=== PATIENT | male | born 1990 | race Caucasian/White ===

== ENCOUNTER 2021-12-10 15:08 | Emergency (ER) | payer OTHER, SELFPAY ==
--- NOTE | ~2021-12-10 | XR_ITS ---
EXAMINATION: XR chest 2V Exam Date/Time: 12/10/2021 15:45 CDT HISTORY: cough wheezing smoker Comparison: 09/17/2011. RESULT: Lines, tubes, and devices: None. Lungs and pleura: Clear. Right anterior lung atelectasis/scarring. Cardiomediastinal silhouette: Stable. Other: No acute osseous or upper abdominal finding. IMPRESSION: No acute cardiopulmonary process. Reviewed, dictated and finalized at location K.
[2021-12-10 15:22] VITALS: BP 131/92; PULSE 99; RESP 16; TEMP 36.5; O2SAT 97
--- NOTE | 2021-12-10 15:37 | ED.URI ---
HPI - URI/Sore Throat General Chief Complaint: Upper Respiratory Infection Stated Complaint: cough/vomiting Time Seen by Provider: 12/10/21 15:37 Source: patient and RN notes reviewed Mode of arrival: ambulatory Limitations: no limitations History of Present Illness HPI Narrative: 31-year-old male presents to the [facility] with complaints of cough and shortness of breath for 6 days. Patient is currently a smoker. Patient reports that at times he coughs so hard he vomits. Denies any abdominal pain. No vomiting otherwise. No chest pain. Reports an occasional sore throat since he has been coughing. Related Data Allergies Allergy/AdvReac Type Severity Reaction Status Date / Time No Known Allergies Allergy Verified 12/10/21 16:11 Review of Systems Review of Systems: All systems reviewed & are unremarkable except as noted in HPI and below Constitutional: Constitutional: Reports no additional constitutional complaints, Denies chills and Denies fever(s) Eyes: Eyes: Reports no additional eye complaints ENT: Reports system reviewed and no additional complaints, except as documented Cardiovascular: Cardiovascular: Reports no additional cardiovascular complaints Respiratory: Respiratory: Reports as per HPI, Reports cough, Reports dyspnea and Reports wheezing Gastrointestinal: Gastrointestinal: Reports no additional gastrointestinal complaints Musculoskeletal: Musculoskeletal: Reports no additional musculoskeletal complaints Integumentary/Breasts: Skin/Breast: Reports system reviewed and no additional complaints, except as docu Neurologic: Reports system reviewed and no additional complaints, except as documented Psychiatric: Psychiatric: Reports no additional psychiatric complaints Allergic/Immunologic: Allergic/Immunologic: Reports no additional allergic/immunologic complaints PMFSH Social History Social History (Updated 12/12/21 @ 14:32 by Polly Looney APRN) Smoking status: Current every day smoker Tobacco type: cigarettes Gender identity (if verbalized by the patient): Male Comments At the time of my signature, I reviewed and agree with the nursing past medical, surgical, social, and family history. There is no relevant family history pertinent to the patient complaint. Exam Const: General: healthy appearing, no acute distress and alert Nutritional Appearance: well nourished Orientation/consciousness: patient oriented x3 Limitations: no limitations HENMT: Head: normal to inspection Ears: external ears normal, TM's normal bilaterally and EAC's normal General nose exam: Normal external nose present and Normal nares present Face and sinus: normal facial exam Throat: posterior oropharynx normal and uvula midline Eyes: General: appearance normal, both eyes and all related structures Pupils: Equal, round and reactive pupils present Neck: Neck: normal visual inspection, no lymphadenopathy and no meningeal signs Chest: Chest palpation & inspection: normal inspection of the chest Resp: Effort & Inspection: normal respiratory effort and no use of accessory muscles Auscultation: no crackles, no rales, no rhonchi and wheezes expiratory wheezes and throughout Cardio: Rate: regular rate Rhythm: regular rhythm Back/Spine/Pelvis: Cervical Spine: normal cervical lordosis Thoracic/Lumbar Spine: thoracic and lumbar spine normal to inspection Skin: General skin exam: normal color Rashes: no rashes Wounds: no wounds Neuro: General: patient oriented x3, moves all extremities, no meningeal signs and no focal motor deficits Cranial nerves: Yes Equal, round and reactive pupils present Speech: normal speech Gait exam (Neuro): Normal gait present Extrem: General: normal to inspection, full ROM and capillary refill normal Psych: Appearance: grossly normal and well kempt Mental Status: mental status grossly normal Affect: normal affect Attitude: cooperative Thought content: Yes Normal thought content present
[2021-12-10] MEDS: ALBUTEROL SULFATE NEB 2.5 MG/3 ML INH INHALATION (16:06)
[2021-12-10] MEDS: IPRATROPIUM BR 0.02% INH SOLN 0.5 MG/2.5 ML VIAL INHALATION (16:06)
== END 2021-12-10 16:55 | disposition home or self-care (01) ==
PROVIDERS: Emergency Provider Nurse Practitioner
DX: J40 Bronchitis, not specified as acute or chronic (principal); F17.210 Nicotine dependence, cigarettes, uncomplicated; K21.9 Gastro-esophageal reflux disease without esophagitis
CPT/HCPCS: 71046; 94640; 99213; G0463

== ENCOUNTER 2022-01-17 20:35 | Emergency (ER) | payer OTHER, SELFPAY ==
[2022-01-17 20:40] VITALS: BP 177/102; PULSE 97; RESP 20; TEMP 36.4; O2SAT 97
[2022-01-17] MEDS: TETANUS,DIPHTHERIA,AC PERTUSSIS ADULT (0.5 ML) BOOSTRIX IM (23:51)
[2022-01-17] MEDS: LIDOCAINE HCL 1% PF 30 ML VIAL 20 ML INFILTRATE (23:51)
--- NOTE | 2022-01-18 00:10 | ED.WOUNDLAC ---
HPI - Wound/Laceration General Chief Complaint: Wound/Laceration Stated Complaint: LACERATION Time Seen by Provider: 01/17/22 23:24 Source: patient Mode of arrival: ambulatory Limitations: no limitations History of Present Illness HPI narrative: This is a 31-year-old male that presents emergency department for laceration of the left wrist sustained just prior to arrival. Reports he was trying to cut a zip tie with a pocket knife and accidentally cut his wrist. Reports bleeding and pain to the area. He is unsure of his last tetanus vaccine. Denies decreased range of motion or numbness. Related Data Allergies Allergy/AdvReac Type Severity Reaction Status Date / Time No Known Allergies Allergy Verified 01/17/22 20:43 [facility] Past Medical History Medical History (Updated 01/18/22 @ 00:16 by Shelly Jones PA-C) No active medical problems Social History Social History (Updated 12/12/21 @ 14:32 by Polly Looney, SOFTWARE TEST MANAGER) Smoking status: Current every day smoker Tobacco type: cigarettes Gender identity (if verbalized by the patient): Male Exam Narrative: GENERAL: Well-appearing, well-nourished, and in no acute distress. HEAD: Normocephalic, atraumatic. EYES: EOMI. EXTREMITIES: Normal range of motion. No edema. 1 cm linear laceration into subcutaneous tissue over the left volar wrist. Bleeding controlled. Normal radial pulse SKIN: Warm, dry, no rash. NEURO: No focal deficits. Alert and oriented x3. PSYCH: Normal mood and affect Course Vital Signs Vital signs: Vital Signs Temperature 97.5 F L 01/17/22 20:40 Pulse Rate 97 01/17/22 20:40 Respiratory Rate 20 01/17/22 20:40 Blood Pressure 177/102 H 01/17/22 20:40 Pulse Oximetry 97 01/17/22 20:40 Oxygen Delivery Room Air 01/17/22 20:40 Temperature 97.5 F L 01/17/22 20:40 Pulse Rate 97 01/17/22 20:40 Respiratory Rate 20 01/17/22 20:40 Blood Pressure 177/102 H 01/17/22 20:40 Pulse Oximetry 97 01/17/22 20:40 Oxygen Delivery Room Air 01/17/22 20:40 Procedures Laceration Laceration 1: Date: 01/18/22 Time: 00:15 Site: upper extremity Side (If applicable): left Size (cm): 1 Description: linear Depth: simple, single layer Pre-repair: irrigated extensively ====== Skin Level ====== Skin layer closed with: steri strips ====== Subcutaneous Layer ====== ====== Muscle Layer ====== ====== Tendon Layer ====== MDM - Wound/Laceration MDM Narrative Medical decision making narrative: Patient presents emergency department for laceration to the left wrist sustained just prior to arrival. Patient with small laceration that was well approximated. This was thoroughly irrigated and closed with some Steri-Strips. He is neurovascularly intact. Instructed on further wound care. He is to follow-up with primary care provider. Patient was updated on tetanus. He was given warnings to return to the ER Patient incidentally noted to be hypertensive. This did downtrend without intervention. He was made aware of this and instructed he should have some follow-up with his primary doctor Critical Care Time Critical Care Time Critical Care Time: No Discharge Plan Discharge Clinical Impression: Laceration Patient Disposition: Home, Self-Care Condition: Stable Instructions: Antibiotic Form, Laceration (ED), Steristrips (ED) Additional Instructions: Return to the emergency department if you experience fever, redness or swelling of your wound, abnormal drainage from your wound, or any other symptoms that are concerning to you. You may let the water run over the wound in the shower. When your Steri-Strips fall off clean the area with soap and water and apply more Steri-Strips. Take oral antibiotic as prescribed Follow-up with your primary care doctor for wound check Prescriptions: New cephalexin 500 mg capsule 500 mg PO Q8H 5 Days Qty:
[2022-01-18 00:24] VITALS: BP 147/112; PULSE 91; RESP 20; O2SAT 100
== END 2022-01-18 00:30 | disposition home or self-care (01) ==
PROVIDERS: Emergency Provider Emergency Medicine; PCP Family Medicine
DX: S61.512A Laceration without foreign body of left wrist, initial encounter (principal); F17.210 Nicotine dependence, cigarettes, uncomplicated; Z23 Encounter for immunization; W26.0XXA Contact with knife, initial encounter
CPT/HCPCS: 90471; 90715; 99283